=== PATIENT | male | born 1985 | race African-American/Black ===

== ENCOUNTER 2020-01-19 19:49 | Emergency (ER) | payer BC ==
[2020-01-19] MEDS ORDERED: SODIUM CHLORIDE 0.9% 1,000 ML IV STA ×2 (20:03→21:15)
[2020-01-19 20:13] LABS: Basophils % (A) 0 %; Eosinophils # (A) 0.1 k/uL (0-0.7); Eosinophils % (A) 2 %; HCT 44.2 % (39.0-53.0); HGB 14.8 gm/dL (13.0-17.5); Lymphocytes # (A) 3.3 k/uL (1.0-4.8); Lymphocytes % (A) 38 %; MCH 29.8 pg (25.0-35.0); MCHC 33.5 g/dL (31.0-37.0); Mean Platelet Volume 8.3; Monocytes # (A) 0.4 k/uL (0-1.0); Monocytes % (A) 5 %; Neutrophils # (A) 4.6 k/uL (1.3-7.7); Neutrophils % (A) 53 %; Platelet Count 208 k/uL (150-450); RBC 4.96 m/uL (4.30-5.90); RDW 12.8 % (11.5-15.5); WBC 8.6 k/uL (3.8-10.6)
--- NOTE | 2020-01-19 20:15 | ED ---
Chest Pain HPI - General Chief Complaint: Chest Pain Stated Complaint: Chest Pain Time Seen by Provider: 01/19/20 19:59 Source: patient, EMS, RN notes reviewed, old records reviewed Mode of arrival: EMS Limitations: no limitations - History of Present Illness Initial Comments: This is a 34-year-old male DF for evaluation presents today for evaluation of chest pain. Patient has no history of heart disease does have a history of diabetes blood sugar well-controlled nonsmoker no high blood pressure by cholesterol. Patient states the chest pain is anterior chest worse when he moves his left and right arm his anterior chest. Patient states this been evaluated for symptoms like this before and without significant findings. Patient has no fevers cough or congestion currently no recent travel history no sick contacts MD Complaint: chest pain -: days(s) Onset: during rest Pain Location: substernal, left chest Pain Radiation: LUE Severity: moderate Severity scale (1-10): 4 Quality: heaviness Consistency: constant Improves With: nothing Worsens With: nothing Context: recent illness Anginal Symptoms: diaphoresis, dyspnea Other Symptoms: cough Treatments Prior to Arrival: none - Related Data Home Medications Medication Instructions Recorded Confirmed Dulaglutide [Trulicity] 0.75 mg SQ BROWN 01/19/20 01/19/20 glyBURIDE [Diabeta] 5 mg PO BID 01/19/20 01/19/20 Allergies Allergy/AdvReac Type Severity Reaction Status Date / Time No Known Allergies Allergy Verified 01/19/20 20:35 Review of Systems ROS Statement: Those systems with pertinent positive or pertinent negative responses have been documented in the HPI. ROS Other: All systems not noted in ROS Statement are negative. EKG Findings - EKG Comments: EKG Findings:: EKG shows a sinus of 95, KS 144, QRS 80, QTC 409 Past Medical History Past Medical History: Diabetes Mellitus History of Any Multi-Drug Resistant Organisms: None Reported Past Surgical History: Appendectomy, Hernia Repair Additional Past Surgical History / Comment(s): umbilical hernia Past Psychological History: No Psychological Hx Reported Smoking Status: Never smoker Past Alcohol Use History: None Reported Past Drug Use History: None Reported General Exam Limitations: no limitations General appearance: alert, in no apparent distress Head exam: Present: atraumatic, normocephalic, normal inspection Eye exam: Present: normal appearance, PERRL, EOMI. Absent: scleral icterus, conjunctival injection, periorbital swelling ENT exam: Present: normal exam, mucous membranes moist Neck exam: Present: normal inspection. Absent: tenderness, meningismus, lym phadenopathy Respiratory exam: Present: normal lung sounds bilaterally. Absent: respiratory distress, wheezes, rales, rhonchi, stridor Cardiovascular Exam: Present: regular rate, normal rhythm, normal heart sounds. Absent: systolic murmur, diastolic murmur, rubs, gallop, clicks GI/Abdominal exam: Present: soft, normal bowel sounds. Absent: distended, tenderness, guarding, rebound, rigid Extremities exam: Present: normal inspection, full ROM, normal capillary refill. Absent: tenderness, pedal edema, joint swelling, calf tenderness Back exam: Present: normal inspection Neurological exam: Present: alert, oriented X3, CN II-XII intact Psychiatric exam: Present: normal affect, normal mood Skin exam: Present: warm, dry, intact, normal color. Absent: rash Course Vital Signs 01/19/20 01/19/20 01/19/20 19:51 20:00 20:30 Temperature 99.0 F Pulse Rate 97 88 Respiratory 18 16 Rate Blood Pressure 137/85 137/85 153/90 O2 Sat by Pulse 95 98 Oximetry 01/19/20 01/19/20 01/19/20 21:00 21:30 22:55 Temperature 98.3 F Pulse Rate 88 87 82 Respiratory 16 18 16 Rate Blood Pressure 139/84 133/79 120/67 O2 Sat by Pulse 97 95 96 Oximetry - Reevaluation(s) Reevaluation #1: Medical record is reviewed Patient's chest pain isn't significantly improved here in the ER does admit to working out recently and states he does feel prior diagnosis of costochondritis he had about 5 years ago Patient without chest pain currently informed results, questions are answered Chest Pain MDM - MDM 34 male DF for evaluation patient with us today with chest pain. Patient has negative troponin negative, CXR negative, pt does have a mild pancreatitis ultrasound of gallbladder is negative. Patient denying significant alcohol abuse, would like discharged home Disposition Clinical Impression: Atypical chest pain, Chest pain, Pancreatitis Disposition: HOME SELF-CARE Condition: Good Instructions (If sedation given, give patient instructions): Pancreatitis (ED), Costochondritis (ED) Is patient prescribed a controlled substance at d/c from ED?: No Referrals: Nonstaff,Physician [Primary Care Provider] - 1-2 days
[2020-01-19 20:23] LABS: Calcium 8.9 mg/dL (8.4-10.2); Magnesium 1.8 mg/dL (1.6-2.3); Potassium 4.1 mmol/L (3.5-5.1); Total Bilirubin 0.3 mg/dL (0.2-1.3); Total Protein 6.8 g/dL (6.3-8.2)
--- NOTE | 2020-01-19 20:41 | XR ---
EXAMINATION TYPE: XR chest 2V DATE OF EXAM: 01/19/2020 COMPARISON: NONE HISTORY: Chest pain TECHNIQUE: FINDINGS: Heart and mediastinum are normal. Lungs are clear. Diaphragm is normal. Bony thorax appears normal. There are chest leads. IMPRESSION: Normal chest.
[2020-01-19 20:45] LABS: D-Dimer <0.17 mg/L FEU (<0.60); Partial Thromboplastin Time 21.2 sec (22.0-30.0); Prothrombin Time 10.2 sec (9.0-12.0)
[2020-01-19] MEDS ORDERED: KETOROLAC 30 MG/ML 1 ML VIAL IVP STA (21:15)
[2020-01-19] MEDS ORDERED: ONDANSETRON 4 MG/2 ML VIAL IVP STA (21:15)
[2020-01-19] MEDS ORDERED: PANTOPRAZOLE 40 MG/10 ML VIAL IVP STA (21:15)
--- NOTE | 2020-01-19 22:25 | US ---
EXAMINATION TYPE: US gallbladder DATE OF EXAM: 01/19/2020 COMPARISON: NONE CLINICAL HISTORY: pain. Pain x 1 day. Hx hernia repair, appendectomy. EXAM MEASUREMENTS: Liver Length: Limited measurement. Measured at 17.8 cm Gallbladder Wall: 0.27 cm CBD: 0.38 cm Right Kidney: 12.4 x 6.0 x 5.6 cm Limited due to gas. Pancreas: Limited. Liver: Appears coarse and to have an increased echogenicity. Measures upper limits of normal, althou gh limited. Difficult to penetrate. Gallbladder: Appears partially contracted. Evidence for sonographic Ribera's sign: No CBD: Appears wnl Right Kidney: Measures upper limits of normal vs. slightly enlarged. IMPRESSION: Hyperechoic liver suggestive of fatty infiltration. No gallstones or dilated ducts.
[2020-01-19 22:57] VITALS: BP 120/67; PULSE 82; RESP 16; TEMP 98.3
== END 2020-01-19 22:57 | disposition home or self-care (01) ==
LOC: SUPCPDRO 19:49 → EC 19:49
DX: R07.89 Other chest pain (principal); R07.2 Precordial pain; K85.90 Acute pancreatitis without necrosis or infection, unspecified; R61 Generalized hyperhidrosis; R06.00 Dyspnea, unspecified; E11.9 Type 2 diabetes mellitus without complications; Z79.84 Long term (current) use of oral hypoglycemic drugs
CPT/HCPCS: 36415; 93005; 85379; 83880; 80053; 83690; 83735; 84484; 85025; 85610; 85730; 71046; 76705; 99285; 96374; 96375 ×2; 96361 ×2; J2405; J1885; C9113